=== PATIENT | female | born 1970 | race American Indian/Alaskan Native ===

== ENCOUNTER 2020-05-10 19:46 | Emergency (ER) | payer OTHER ==
[~2020-05-10] VITALS: Ht 167.6 cm; Wt 93.0 kg
[~2020-05-10 19:46] MED LIST: ADULT LOW DOSE81 MG PO; ADVIL LIQUI-GE200 MG PO; ADVIL200 MG PO; ALBUTEROL2.5 MG/0.5 INH; ALPRAZOLAM0.5 MG PO; ASPIRIN EC81 MG PO; BUSPIRONE HCL7.5 MG PO; CALCIUM + VITA1 EAC1 PO; CLARITHROMYCIN500 MG PO; DOCUSATE SODIU100 MG PO; DOXYCYCLINE HY100 MG PO; FEXOFENADINE H180 MG PO; FLAGYL500 MG PO; GLUCOPHAGE500 MG PO; IRON325 M1 PO; KEFLEX500 MG PO; LEVOTHYROXINE25 MCG PO; METFORMIN HCL1000 MG PO; METFORMIN HCL500 MG PO; METRONIDAZOLE250 MG PO; NORCO 5-325 TA1 EACH PO; PANTOPRAZOLE SO40 MG PO; PEPTO-BISMOL262 MG PO; PRILOSEC OTC20 MG PO; SIMVASTATIN10 MG PO; ULTRAM50 MG PO; VITAMIN C500 M1 PO; VITAMIN D1000 UNI1 PO; VITAMIN D250000 UNIT PO; VITAMIN D35000 UNIT PO; VITAMIN D5000 UNIT PO; ZOFRAN4 MG PO
[2020-05-10] MEDS ORDERED: SERTRALINE HCL50 MG PO (19:58)
--- NOTE | 2020-05-11 12:37 | EKG ---
[facility] [address] [facility] [place] [address] Signed Sinus tachycardia T wave abnormality, consider anterolateral ischemia Abnormal ECG When compared with ECG of 30-MAR-2020 17:36, Inverted T waves have replaced nonspecific T wave abnormality in Lateral leads Confirmed by MARLEE GONZALEZ MD ([id number]) on 05/11/2020 12:37:15 PM Electronically Signed By: MARLEE GONZALEZ MD 05/11/20 1237 PATIENT NAME: SHAILESH FERRIS Electrocardiogram DATE OF : 70 PHYSICIAN: MARLEE GONZALEZ MD REPORT #: [id number] REPORT IS CONFIDENTIAL AND NOT TO BE RELEASED WITHOUT AUTHORIZATION
== END 2020-05-10 23:47 | disposition home or self-care (01) ==
LOC: ED 19:46
DX: R07.9 Chest pain, unspecified (principal); E11.65 Type 2 diabetes mellitus with hyperglycemia; Z56.3 Stressful work schedule; F41.9 Anxiety disorder, unspecified; E11.9 Type 2 diabetes mellitus without complications; Z88.5 Allergy status to narcotic agent; Z79.899 Other long term (current) drug therapy; Z79.84 Long term (current) use of oral hypoglycemic drugs
CPT/HCPCS: 71045; 71046; 80053; 82010; 82800; 83735; 84484; 85025; 93005; 93010; 99285-25; J1815; J7030

== ENCOUNTER 2021-09-07 10:00 | Emergency (ER) | payer OTHER ==
[~2021-09-07] VITALS: Ht 167.6 cm; Wt 93.0 kg
[~2021-09-07 10:00] MED LIST changes: +SERTRALINE HCL50 MG PO
== END 2021-09-07 13:29 | disposition home or self-care (01) ==
LOC: ED 10:00
DX: E11.65 Type 2 diabetes mellitus with hyperglycemia (principal); Z79.899 Other long term (current) drug therapy; Z79.84 Long term (current) use of oral hypoglycemic drugs; Z88.5 Allergy status to narcotic agent
CPT/HCPCS: 36415; 80048; 81001; 82803; 99283; J7121

== ENCOUNTER 2024-02-12 04:07 | Emergency (ER) | payer OTHER ==
[~2024-02-12] VITALS: Ht 167.6 cm; Wt 84.0 kg
[2024-02-12] MEDS ORDERED: JANUMET XR 1001 EACH PO (04:18)
[2024-02-12 04:24] LABS: EOSINOPHILS 2.6 % (0-6); HEMATOCRIT 40.8 % (35.0-50.0); HEMOGLOBIN 13.8 g/dL (12.0-18.0); LYMPHOCYTES 33.9 % (24-44); MCH 28.3 (27-36); MCHC 33.9 g/dl (30-36); MCV 83.5 fl (81-99); NEUTROPHILS 56.5 % (39-80); PLATELET COUNT 302 K/uL (140-440); RBC 4.89 M/ul (4.3-5.7); RDW 14.3 (10.5-15.0)
[2024-02-12] MEDS ORDERED: FAMOTIDINE 20 MG/ 2 ML VIAL IV ONE (04:30)
[2024-02-12] MEDS ORDERED: ASPIRIN 81 MG CHEW PO ONE (04:30)
[2024-02-12] MEDS ORDERED: NITROGLYCERIN 0.4 MG SUBL SL PRN (04:30)
[2024-02-12 04:45] LABS: ALBUMIN 3.8 g/dL (3.4-5.0); ALBUMIN/GLOBULIN RATIO 0.93 (1.1-2.4); ALKALINE PHOSPHATASE 121 U/L (46-116); ALT (SGPT) 44 U/L (14-59); ANION GAP 13.6 (7-21); AST (SGOT) 18 U/L (15-37); BILIRUBIN, TOTAL 0.3 ng/dL (0.2-1.0); BUN/CREATININE RATIO 11.42 (6.0-28.6); CALCIUM 9.3 mg/dL (8.5-10.1); CARBON DIOXIDE 27 mmol/L (21-32); CHLORIDE 99 mmol/L (98-107); GLOMERULAR FILTRATION RATE,EST 103 mL/min (>60); MAGNESIUM 1.7 mg/dL (1.8-2.4); POTASSIUM 3.6 mmol/L (3.5-5.1); PROTEIN, TOTAL 7.9 g/dL (6.4-8.2); UREA NITROGEN 8 mg/dL (7-18)
[2024-02-12] MEDS ORDERED: LACTATED RINGER'S 1,000 ML IV ONE (04:45)
[2024-02-12] MEDS ORDERED: MAGNESIUM OXIDE 400 MG TABLET PO ONE (05:30)
[2024-02-12 05:41] LABS: BILIRUBIN, URINE NEGATIVE (negative); BLOOD/HGB, URINE NEGATIVE (Negative); KETONE, URINE TRACE (Negative); LEUK ESTERASE, URINE SMALL (negative); NITRITE, URINE POSITIVE (negative)
[2024-02-12 05:44] LABS: BACTERIA, URINE 4+ /hpf (negative); CASTS, URINE NONE SEEN \\lpf; CRYSTALS, URINE NONE SEEN (0-1+); EPITHELIAL CELLS, URINE SQUAMOUS 1+ /lpf (0-1+); RED BLOOD CELLS, URINE 0-1 /hpf (0-5); WHITE BLOOD CELLS, URINE 21-40 /HPF (0-5)
[2024-02-12 05:45] LABS: COLLECTION TYPE, URINE CLEAN CATCH; REFLEX CULTURE, URINE Yes (No)
[2024-02-12 05:48] LABS: AMPHETAMINES, URINE NEGATIVE (NEGATIVE); BARBITURATES, URINE NEGATIVE (NEGATIVE); BENZODIAZEPINE, URINE NEGATIVE (NEGATIVE); BUPRENORPHINE, URINE NEGATIVE (NEGATIVE); CANNABINOID, URINE NEGATIVE (NEGATIVE); COCAINE, URINE NEGATIVE (NEGATIVE); ECSTASY, URINE NEGATIVE (NEGATIVE); FENTANYL, URINE NEGATIVE (NEGATIVE); METHADONE, URINE NEGATIVE (NEGATIVE); OPIATES, URINE NEGATIVE (NEGATIVE); OXYCODONE, URINE NEGATIVE (NEGATIVE); PHENCYCLIDINE, URINE NEGATIVE (NEGATIVE)
[2024-02-12] MEDS ORDERED: NITROFURANTOIN MONOHYD MACROCR 100 MG CAP PO ONE (06:15)
[2024-02-12] MEDS ORDERED: MACROBID 100 M100 MG PO (06:20)
[2024-02-12] MEDS ORDERED: IBUPROFEN 800 MG TAB PO ONE (09:15)
[2024-02-12 09:16] VITALS: BP 124/56
--- NOTE | 2024-02-13 08:35 | STRESS ---
[facility] [address] [place] [address] Signed DATE OF STUDY: PROCEDURE: EKG stress test SUMMARY REPORT: The patient was stressed according to Sebastian protocol, achieved a work level of 10.1 METS. Resting heart rate was 76 beats per minute. Resting blood pressure 103/75 mmHg. Resting EKG showed normal sinus rhythm, otherwise within normal limits. The patient exercised for 7 minutes. Heart rate increased to 162 beats per minute representing 97% of maximal age predicted heart rate. Blood pressure increased to 154/73 mmHg. No ischemic EKG changes. No chest pain reported. CONCLUSION: 1. This is maximal asymptomatic exercise EKG stress test with average functional status. 2. No ischemic EKG changes noted. 3. Kang score of 7. 4. Low risk stress test. Henrique Gu MD MA/STANLEY /[id number] PATIENT NAME: SHAILESH FERRIS Stress test DATE OF : 70 PHYSICIAN: HENRIQUE GU MD REPORT #: [id number] REPORT IS CONFIDENTIAL AND NOT TO BE RELEASED WITHOUT AUTHORIZATION
--- NOTE | 2024-02-13 19:40 | EKG ---
[facility] [address] [facility] [place], [place] [address] Signed Normal sinus rhythm Nonspecific ST and T wave abnormality Abnormal ECG No previous ECGs available Confirmed by Sakshi Mitchell MD ([id number]) on 02/13/2024 7:40:39 PM Electronically Signed By: SAKSHI MITCHELL MD 02/13/241939 PATIENT NAME: SHAILESH FERRIS Electrocardiogram DATE OF : 70 PHYSICIAN: SAKSHI MITCHELL MD REPORT #: [id number] REPORT IS CONFIDENTIAL AND NOT TO BE RELEASED WITHOUT AUTHORIZATION
--- NOTE | 2024-02-13 19:41 | EKG ---
[facility] [address] [facility] [place], [place] [address] Signed Normal sinus rhythm Normal ECG When compared with ECG of 12-FEB-2024 04:06, (Unconfirmed) Nonspecific T wave abnormality, improved in Anterior leads Confirmed by Claudio Mitchell MD ([id number]) on 02/13/2024 7:40:55 PM Electronically Signed By: CLAUDIO MITCHELL MD 02/13/241940 PATIENT NAME: LATONIA FERRISHEL JAKE Electrocardiogram DATE OF : 70 PHYSICIAN: CLAUDIO MITCHELL MD REPORT #: [id number] REPORT IS CONFIDENTIAL AND NOT TO BE RELEASED WITHOUT AUTHORIZATION
== END 2024-02-12 09:16 | disposition home or self-care (01) ==
LOC: ED 04:07
PROVIDERS: Internal Medicine
DX: R07.2 Precordial pain (principal); N39.0 Urinary tract infection, site not specified; E11.9 Type 2 diabetes mellitus without complications; Z79.899 Other long term (current) drug therapy; Z88.0 Allergy status to penicillin; Z88.5 Allergy status to narcotic agent
CPT/HCPCS: 36415; 71045; 80053; 80307; 81001; 83036; 83690; 83735; 83880; 84484; 85025; 85379; 87088; 87186; 93005; 93010; 93017; 96374; 99285-25; A9270; J7121

== ENCOUNTER 2025-02-01 17:21 | Emergency (ER) | payer OTHER ==
[~2025-02-01] VITALS: Ht 165.1 cm; Wt 77.4 kg
[~2025-02-01 17:21] MED LIST changes: +JANUMET XR 1001 EACH PO; +MACROBID 100 M100 MG PO
[2025-02-01] MEDS ORDERED: FLUOXETINE HCL20 MG PO (18:44)
[2025-02-01] MEDS ORDERED: METFORMIN HCL1000 MG PO (18:52)
[2025-02-01] MEDS ORDERED: VAZALORE81 MG PO (18:53)
[2025-02-01] MEDS ORDERED: ALLEGRA-D 24 H1 EACH PO (18:53)
[2025-02-01] MEDS ORDERED: OZEMPIC0.25 MG/02 SUB-Q (18:53)
[2025-02-01] MEDS ORDERED: VITAMIN D-40010 MCG PO (18:54)
[2025-02-01 20:06] LABS: AMPHETAMINES, URINE NEGATIVE (NEGATIVE); BARBITURATES, URINE NEGATIVE (NEGATIVE); BENZODIAZEPINE, URINE NEGATIVE (NEGATIVE); CANNABINOID, URINE NEGATIVE (NEGATIVE); COCAINE, URINE NEGATIVE (NEGATIVE); ECSTASY, URINE NEGATIVE (NEGATIVE); FENTANYL, URINE NEGATIVE (NEGATIVE); METHADONE, URINE NEGATIVE (NEGATIVE); OPIATES, URINE NEGATIVE (NEGATIVE); OXYCODONE, URINE NEGATIVE (NEGATIVE); PHENCYCLIDINE, URINE NEGATIVE (NEGATIVE)
[2025-02-01] MEDS ORDERED: CYCLOBENZAPRINE10 MG PO (20:10)
[2025-02-01] MEDS ORDERED: CYCLOBENZAPRINE HCL 10 MG HOME.PACK PO ONE (20:15)
[2025-02-01 20:25] VITALS: BP 108/62
== END 2025-02-01 20:28 | disposition home or self-care (01) ==
LOC: ED 17:21
PROVIDERS: Family Medicine
DX: S63.501A Unspecified sprain of right wrist, initial encounter (principal); E11.9 Type 2 diabetes mellitus without complications; F41.9 Anxiety disorder, unspecified; V89.2XXA Person injured in unspecified motor-vehicle accident, traffic, initial encounter; Z88.0 Allergy status to penicillin; Z88.5 Allergy status to narcotic agent; Z79.899 Other long term (current) drug therapy; Z79.85 Long-term (current) use of injectable non-insulin antidiabetic drugs; Z79.84 Long term (current) use of oral hypoglycemic drugs; Z79.82 Long term (current) use of aspirin
CPT/HCPCS: 73090; 73110; 80307; 99284